=== PATIENT | female | born 1975 | race Caucasian/White ===

== ENCOUNTER 2017-06-06 19:16 | Emergency (ER) | payer OTHER ==
[~2017-06-06] VITALS: Ht 165.1 cm; Wt 61.2 kg
[2017-06-06] MEDS ORDERED: BACTRIM DS TAB1 EACH (20:01)
[2017-06-06] MEDS ORDERED: PYRIDIUM200 MG PO (20:44)
[2017-06-06 20:45] LABS: URINE BILIRUBIN NEGATIVE (Negative); URINE BLOOD 3+ (Negative); URINE CLARITY CLOUDY; URINE COLOR YELLOW; URINE GLUCOSE-RANDOM NEGATIVE (Negative); URINE KETONES TRACE (Negative); URINE NITRITE-REFLEX NEGATIVE (Negative); URINE PROTEIN 2+ (Negative); URINE SPECIFIC GRAVITY >= 1.030 (1.005-1.030)
[2017-06-06 20:46] LABS: URINE LEUKOCYTES-REFLEX 3+ (Negative)
[2017-06-06] MEDS ORDERED: MACROBID 100 M100 M1 PO (20:47)
[2017-06-06 21:09] LABS: MUCUS None Seen strn/LPF (None Seen); SQUAMOUS >10 Many /LPF (0-3)
[2017-06-06 21:10] LABS: URINE WBC-REFLEX >25 Many /HPF (0-5)
[2017-06-06 21:13] LABS: BACTERIA-REFLEX 1-9 Few /HPF (None Seen); CASTS None Seen /LPF (None Seen); CRYSTALS None Seen /LPF (None Seen)
[2017-06-06 21:22] VITALS: BP 130/62
== END 2017-06-06 21:24 | disposition home or self-care (01) ==
LOC: M.ERS 19:16
PROVIDERS: Nurse Practitioner Family
DX: N39.0 Urinary tract infection, site not specified (principal); Z90.710 Acquired absence of both cervix and uterus; Z87.440 Personal history of urinary (tract) infections; Z88.8 Allergy status to other drugs, medicaments and biological substances; Z87.891 Personal history of nicotine dependence